=== PATIENT | female | born 1995 | race Caucasian/White ===

== ENCOUNTER 2020-02-04 11:05 | Emergency (ER) | payer OTHER ==
[~2020-02-04] VITALS: Ht 170.2 cm; Wt 62.6 kg
[~2020-02-04 11:05] MED LIST: BACTRIM DS TAB1 EACH PO; NORCO 5-325 TA1 EACH PO; ZOFRAN ODT4 M1 PO; ZOLOFT25 MG PO; adhd med
[2020-02-04 12:54] LABS: BASOPHILS 0.4 % (0.0-2.0); HEMATOCRIT 46.3 % (37.0-47.0); HEMOGLOBIN 16.2 gm/dL (12.0-15.0); LYMPHOCYTES 19.7 % (24.0-44.0); MCH 32.5 pg (26.0-34.0); MCHC 34.9 g/dL (28.0-37.0); MONOCYTES 6.4 % (1.0-8.0); PLATELET COUNT 224 thou/uL (150-400); POLYS 73.5 % (36.0-66.0); RBC 4.98 mil/uL (4.20-5.00); RDW 13.1 % (10.5-14.5); WBC 8.1 thou/uL (4.0-11.0)
[2020-02-04 13:01] LABS: CALCIUM 10.5 mg/dL (8.5-10.1); CREATININE 0.8 mg/dL (0.6-1.0); POTASSIUM 3.7 mmol/L (3.5-5.1)
[2020-02-04 13:07] LABS: ALBUMIN 4.8 g/dL (3.4-5.0); TOTAL BILIRUBIN 0.9 mg/dL (<0.1-1.0); TOTAL PROTEIN 8.6 g/dL (6.4-8.2)
--- NOTE | 2020-02-04 14:24 | EKG ---
[facility] [place] [address] ELECTROCARDIOGRAM REPORT Name: DRAKE PENNINGTON Room #: REG [facility]#: [id number] Admission: 02/04/20 Attend Phys: Discharge: Date of : [birth year] Report #: [id number] THIS REPORT FOR: cc: FAM - Family physician unknown Марина Ji MD,Claudio Chambers MD ~ THIS REPORT FOR: //name// [facility] ED Test Date: 2020-02-04 Test Time: 13:33:44 Pat Name: DRAKE PENNINGTON Department: Room: Gender: Manager [employer]: : 1995 Requested By: Martine Dong Order Number: [id number] MD: Claudio De Leon Measurements Intervals [place] Rate: 103 P: 73 CO: 189 QRS: 57 QRSD: 76 T: 57 QT: 342 QTc: 448 Interpretive Statements Sinus tachycardia Borderline low voltage, extremity leads Baseline wander in lead(s) V2 No previous ECG available for comparison Electronically Signed On 02-04-2020 14:23:26 CDT by Claudio De Leon [email or web address] <ELECTRONICALLY SIGNED> By: Claudio De Leon MD 02/04/20 1423 32 32 Claudio De Leon MD /[email or web address]
[2020-02-04] MEDS ORDERED: ATIVAN0.5 M1 PO (14:32)
[2020-02-04] MEDS ORDERED: ONDANSETRON HCL4 M2 PO (14:32)
[2020-02-04 14:45] VITALS: BP 110/56
== END 2020-02-04 14:45 | disposition home or self-care (01) ==
LOC: ER 11:05
PROVIDERS: Physician Assistant
DX: F41.9 Anxiety disorder, unspecified (principal); R11.2 Nausea with vomiting, unspecified; Z87.891 Personal history of nicotine dependence